=== PATIENT | female | born 1945 | race Caucasian/White ===

== ENCOUNTER 2020-03-01 20:22 | Inpatient (IN) | payer MEDICARE, OTHER ==
[~2020-03-01 20:22] MED LIST: 3IN1 COMMODE; AMBIEN5 MG PO; BACTRIM DS TAB1 EACH PO; BENTYL10 MG PO; CELEXA10 MG PO; LIPITOR 10MG TA10 MG PO; MACROBID100 MG PO; NITROFURANTOIN100 M1 PO; NORCO 5-325 TA1 EACH PO; ONDANSETRON ODT4 MG PO/SL; ONDANSETRON ODT4 MG SL; PEPCID AC20 MG PO; SENNA-TIME S T1 EACH PO; TRAZODONE 100M100 MG PO; WOMEN MULTIVIT1 EACH PO; ZOCOR10 MG PO; ZOCOR20 MG PO; ZOFRAN ODT4 MG SL; ZOFRAN8 MG PO; ZOLOFT50 MG PO
[2020-03-01 21:41] LABS: BASOPHIL 0.4 % (0-2); EOSINOPHIL 0.1 % (0-7); HGB 11.4 g/dl (12.5-16.0); LYMPHOCYTE 12.8 % (15-48); MCH 28.2 pg (25.0-31.0); MCHC 32.6 g/dL (32.0-36.0); MCV 86.6 fL (78.0-100.0); MONOCYTE 6.1 % (0-12); MPV 10.7 fL (6.0-9.5); NEUTROPHIL 80.3 % (41-80); NRBC 0; PLT 255 K/uL (150-400); RBC 4.04 M/uL (4.20-5.40); RDW 13.7 % (11.5-14.0); WBC 20.9 K/uL (4.0-10.5)
[2020-03-01 22:12] LABS: ALBUMIN 3.3 g/dL (3.4-5.0); BUN/CREAT RATIO (CALC) 16.5 RATIO; C-REACTIVE PROTEIN 15.2 mg/dL (<=0.90); CREATININE 0.79 mg/dL (0.51-0.95); GLOBULIN (CALCULATION) 3.4 g/dL; POTASSIUM 3.9 mmol/L (3.5-5.1); TOTAL PROTEIN 6.7 g/dL (6.4-8.2)
[2020-03-01 22:23] LABS: LACTIC ACID 0.8 mmol/L (0.4-1.9)
[2020-03-01 22:37] LABS: BILIRUBIN NEGATIVE (NEGATIVE); BLOOD TRACE-INTACT Ery/uL (NEGATIVE); CLARITY CLOUDY (CLEAR); COLOR YELLOW (YELLOW); GLUCOSE (U) NORMAL (NORMAL); LEUKOCYTES 3+ Leu/uL (NEGATIVE); NITRITE POSITIVE (NEGATIVE); PROTEIN NEGATIVE (NEGATIVE); UROBILINOGEN 0.2 mg/dL (0.2-1.0)
[2020-03-01 22:41] LABS: BACTERIA 4+; SQUAMOUS EPITHELIAL CELLS RARE; URINARY RBC RARE; URINARY WBC 20-50
[2020-03-01 22:49] LABS: CORONAVIRUS 2019 SARS-COV-2 NEGATIVE (NEGATIVE); INFLUENZA A NAA NEGATIVE (NEGATIVE)
[2020-03-02] MEDS ORDERED: ZYRTEC10 MG PO (03:17)
[2020-03-03 05:01] LABS: BASOPHIL 0.5 % (0-2); EOSINOPHIL 2.3 % (0-7); HCT 31.3 % (37.0-47.0); MCH 27.8 pg (25.0-31.0); MCHC 31.9 g/dL (32.0-36.0); MCV 86.9 fL (78.0-100.0); MPV 10.7 fL (6.0-9.5); NEUTROPHIL 66.8 % (41-80); NRBC 0; PLT 221 K/uL (150-400); RDW 13.6 % (11.5-14.0); WBC 11.1 K/uL (4.0-10.5)
[2020-03-03 05:24] LABS: BUN/CREAT RATIO (CALC) 15.3 RATIO; CREATININE 0.72 mg/dL (0.51-0.95); POTASSIUM 3.9 mmol/L (3.5-5.1)
[2020-03-04 04:51] LABS: BASOPHIL 0.6 % (0-2); EOSINOPHIL 2.3 % (0-7); HCT 32.4 % (37.0-47.0); HGB 10.2 g/dl (12.5-16.0); LYMPHOCYTE 21.7 % (15-48); MCH 27.6 pg (25.0-31.0); MCHC 31.5 g/dL (32.0-36.0); MCV 87.8 fL (78.0-100.0); MONOCYTE 9.6 % (0-12); NEUTROPHIL 65.4 % (41-80); NRBC 0; PLT 237 K/uL (150-400); RBC 3.69 M/uL (4.20-5.40); RDW 13.3 % (11.5-14.0); WBC 10.8 K/uL (4.0-10.5)
[2020-03-04 05:06] LABS: BUN/CREAT RATIO (CALC) 12.5 RATIO; CREATININE 0.72 mg/dL (0.51-0.95); POTASSIUM 3.9 mmol/L (3.5-5.1)
[2020-03-05 06:28] LABS: BASOPHIL 0.7 % (0-2); EOSINOPHIL 4.2 % (0-7); HCT 32.9 % (37.0-47.0); HGB 10.6 g/dl (12.5-16.0); LYMPHOCYTE 34.3 % (15-48); MCH 28.2 pg (25.0-31.0); MCHC 32.2 g/dL (32.0-36.0); MCV 87.5 fL (78.0-100.0); MONOCYTE 8.1 % (0-12); MPV 10.6 fL (6.0-9.5); NEUTROPHIL 52.5 % (41-80); NRBC 0; PLT 242 K/uL (150-400); RBC 3.76 M/uL (4.20-5.40); RDW 13.5 % (11.5-14.0); WBC 8.6 K/uL (4.0-10.5)
[2020-03-05 06:54] LABS: BUN/CREAT RATIO (CALC) 13.2 RATIO; CREATININE 0.76 mg/dL (0.51-0.95); POTASSIUM 3.8 mmol/L (3.5-5.1)
[2020-03-05] MEDS ORDERED: LEVAQUIN500 MG PO (15:43)
[2020-09-05] MEDS ORDERED: ALEVE220 MG PO (13:04)
== END 2020-03-05 17:30 | disposition home or self-care (01) | DRG 689 ==
LOC: FER 20:22 → FMS 03-02 01:38
PROVIDERS: Emergency Medicine Emergency Medical Services; Hospitalist; Internal Medicine; ADMIT Internal Medicine
DX: N12 Tubulo-interstitial nephritis, not specified as acute or chronic (principal); J18.9 Pneumonia, unspecified organism; E78.5 Hyperlipidemia, unspecified; F41.9 Anxiety disorder, unspecified; F32.9 Major depressive disorder, single episode, unspecified; K21.9 Gastro-esophageal reflux disease without esophagitis; M54.5 Low back pain; Z96.642 Presence of left artificial hip joint; Z66 Do not resuscitate; G89.29 Other chronic pain; G43.909 Migraine, unspecified, not intractable, without status migrainosus; G47.33 Obstructive sleep apnea (adult) (pediatric); M19.90 Unspecified osteoarthritis, unspecified site; M54.2 Cervicalgia; Z88.1 Allergy status to other antibiotic agents; Z87.891 Personal history of nicotine dependence; Z90.49 Acquired absence of other specified parts of digestive tract; Z90.710 Acquired absence of both cervix and uterus; Z98.890 Other specified postprocedural states
CPT/HCPCS: 36415; 71045; 80048; 80053; 81001; 82728; 83605; 83615; 83735; 84145; 84484; 85025; 86140; 87076; 87088; 87186; 93005; 94010; 97110; 97116; 97162; 97166; 97530; 97530-GP; J0692; J0696; J1650; J1885; J2270; J2405; J2550; J7030; U0002

== ENCOUNTER → 2020-08-08 | Day surgery (SDC) | payer MEDICARE, OTHER ==
[~2020-08-08] VITALS: Ht 165.1 cm; Wt 72.6 kg
[~2020-08-08] MED LIST changes: +ALEVE220 MG PO; +LEVAQUIN500 MG PO; +ZYRTEC10 MG PO
== END | disposition home or self-care (01) ==
LOC: FAS 12:15
DX: H26.9 Unspecified cataract (principal); G43.909 Migraine, unspecified, not intractable, without status migrainosus; M19.90 Unspecified osteoarthritis, unspecified site; Z88.1 Allergy status to other antibiotic agents; Z79.899 Other long term (current) drug therapy
CPT/HCPCS: J2250

== ENCOUNTER → 2020-09-05 | Day surgery (SDC) | payer MEDICARE, OTHER ==
[~2020-09-05] VITALS: Ht 165.1 cm; Wt 68.0 kg
== END | disposition home or self-care (01) ==
LOC: FAS 12:23
DX: H25.813 Combined forms of age-related cataract, bilateral (principal); G43.909 Migraine, unspecified, not intractable, without status migrainosus; M19.90 Unspecified osteoarthritis, unspecified site
CPT/HCPCS: J2250; V2632

== ENCOUNTER 2020-12-30 02:48 | Emergency (ER) | payer MEDICARE, OTHER ==
[2020-12-30 03:34] LABS: BILIRUBIN NEGATIVE (NEGATIVE); BLOOD 3+ Ery/uL (NEGATIVE); CLARITY CLEAR (CLEAR); COLOR YELLOW (YELLOW); GLUCOSE (U) NORMAL (NORMAL); LEUKOCYTES 2+ Leu/uL (NEGATIVE); NITRITE POSITIVE (NEGATIVE); PROTEIN 3+ mg/dL (NEGATIVE); SPECIFIC GRAVITY 1.025 (1.001-1.030); UROBILINOGEN 0.2 mg/dL (0.2-1.0)
[2020-12-30 03:40] LABS: BASOPHIL 0.8 % (0-2); HCT 34.5 % (37.0-47.0); HGB 11.5 g/dl (12.5-16.0); LYMPHOCYTE 32.4 % (15-48); MCH 29.4 pg (25.0-31.0); MCHC 33.3 g/dL (32.0-36.0); MCV 88.2 fL (78.0-100.0); MONOCYTE 8.1 % (0-12); MPV 10.3 fL (6.0-9.5); NEUTROPHIL 51.8 % (41-80); NRBC 0; PLT 211 K/uL (150-400); RBC 3.91 M/uL (4.20-5.40); RDW 13.2 % (11.5-14.0); WBC 8.9 K/uL (4.0-10.5)
[2020-12-30 03:46] LABS: BACTERIA 3+; URINARY RBC TNTC; URINARY WBC TNTC
[2020-12-30 03:49] LABS: ALBUMIN 3.1 g/dL (3.4-5.0); BILIRUBIN - TOTAL 0.3 mg/dL (0.2-1.0); BUN/CREAT RATIO (CALC) 11.4 RATIO; CREATININE 0.79 mg/dL (0.51-0.95); GLOBULIN (CALCULATION) 3.1 g/dL; POTASSIUM 3.4 mmol/L (3.5-5.1); TOTAL PROTEIN 6.2 g/dL (6.4-8.2)
[2020-12-30 03:52] LABS: LACTIC ACID 0.8 mmol/L (0.4-1.9)
[2020-12-30] MEDS ORDERED: PHENERGAN12.5 M1 PO (05:54)
[2020-12-30] MEDS ORDERED: NORCO 5-325 TA1 EACH PO (05:54)
[2020-12-30] MEDS ORDERED: KEFLEX250 MG PO (05:54)
[2020-12-30] MEDS ORDERED: PYRIDIUM200 MG PO (05:54)
[2020-12-30] MEDS ORDERED: COLACE100 MG PO (05:54)
== END 2020-12-30 06:08 | disposition home or self-care (01) ==
LOC: FER 02:48
PROVIDERS: Emergency Medicine Emergency Medical Services
DX: N30.01 Acute cystitis with hematuria (principal); Z88.1 Allergy status to other antibiotic agents
CPT/HCPCS: 36415; 80053; 81001; 83605; 85025; 87040; 87076; 87077; 87088; 87186; J0696; J2270; J2405; J7030

== ENCOUNTER 2021-11-28 13:53 | Emergency (ER) | payer MEDICARE, OTHER ==
[~2021-11-28 13:53] MED LIST changes: +COLACE100 MG PO; +KEFLEX250 MG PO; +PHENERGAN12.5 M1 PO; +PYRIDIUM200 MG PO
[2021-11-28] MEDS ORDERED: PREDNISONE 20MG20 MG PO (16:58)
[2021-11-28] MEDS ORDERED: NAPROXEN500 MG PO (16:58)
[2021-11-28] MEDS ORDERED: BACLOFEN 10MG T10 MG PO (16:58)
== END 2021-11-28 17:58 | disposition home or self-care (01) ==
LOC: FER 13:53
DX: M54.42 Lumbago with sciatica, left side (principal)
CPT/HCPCS: 73502; 96372; J1100; J1885